=== PATIENT | female | born 1985 | race Caucasian/White ===

== ENCOUNTER 2019-05-20 11:39 | Outpatient (CLI) | payer SELFPAY ==
[2019-05-20 12:58] VITALS: BP 110/63
[2019-05-20] MEDS ORDERED: LACTATED RINGERS 1,000 ML IV SCH (13:00)
== END 2019-05-20 13:02 | disposition home or self-care (01) ==
LOC: TRG 11:39
PROVIDERS: ATTEND Obstetrics & Gynecology
DX: O47.1 False labor at or after 37 completed weeks of gestation (principal); Z3A.39 39 weeks gestation of pregnancy
CPT/HCPCS: 59025

== ENCOUNTER 2019-05-24 09:47 | Inpatient (IN) | payer SELFPAY ==
[2019-05-24] MEDS ORDERED: BICITRA PO SCH (10:24)
[2019-05-24] MEDS ORDERED: REGLAN IV SCH (10:24)
[2019-05-24] MEDS: LACTATED RINGERS 1,000 ML IV SCH ×2 (10:42→11:17)
[2019-05-24 10:50] LABS: Basophils % (Auto) 0.6 % (0.0-1.8); Eosinophils # (Auto) 0.1 K/mm3 (0.0-0.4); Eosinophils % (Auto) 1.4 % (0.0-4.3); Hematocrit 38.4 % (30.3-42.9); Hemoglobin 12.9 gm/dl (10.1-14.3); Lymphocytes # (Auto) 1.6 K/mm3 (1.2-5.4); Lymphocytes % (Auto) 24.4 % (13.4-35.0); Mean Corpuscular HGB Conc 34 % (30-34); Mean Corpuscular Volume 82 fl (79-97); Monocytes # (Auto) 0.4 K/mm3 (0.0-0.8); Monocytes % (Auto) 6.1 % (0.0-7.3); Platelet Count 198 K/mm3 (140-440); Red Blood Count 4.71 M/mm3 (3.65-5.03); Red Cell Distribution Width 15.6 % (13.2-15.2)
[2019-05-24] MEDS ORDERED: ANCEF/STERILE WATER 2 GM/20 ML 2 GM/20 ML SYRINGE IV NR (11:00)
[2019-05-24] MEDS ORDERED: PITOCin/NS 20 UNIT/1000ML DRIP 20 UNITS/1,000 ML BAG IV SCH ×2 (11:00→14:00)
[2019-05-24] MEDS ORDERED: DEXMEDETOMIDINE IV ONE (11:00)
[2019-05-24] MEDS ORDERED: PEPCID IV ONE (11:24)
--- NOTE | 2019-05-24 11:57 | History and Physical Report ---
History of Present Illness Date of examination: 05/24/19 Date of admission: 05/24/19 09:47 Chief complaint: Here for a repeat section. History of present illness: Term . Previous . MARIN 05/31/2019. Past History Past Medical History: no pertinent history Past Surgical History: section - Obstetrical History Expected Date of Delivery: 05/31/19 Actual Gestation: 39 Week(s) 0 Day(s) : 5 Medications and Allergies Allergies Allergy/AdvReac Type Severity Reaction Status Date / Time No Known Allergies Allergy Verified 12/20/14 17:12 Home Medications Medication Instructions Recorded Confirmed Last Taken Type HYDROcodone/APAP 5-325 [[place] 1 tab PO Q6HR PRN 07/25/16 07/25/16 Unknown Hi story 5/325] Ibuprofen [Motrin 200 MG tab] 1 tab PO Q6H PRN 07/25/16 07/25/16 Unknown History Docusate Sodium [Colace] 100 mg PO BID PRN #60 capsule 07/26/16 Unknown Rx Ferrous Sulfate [Feosol 325 MG tab] 325 mg PO BID #60 tablet 07/26/16 Unknown Rx Ibuprofen [Motrin] 800 mg PO Q8HR PRN #30 tablet 07/26/16 Unknown Rx oxyCODONE /ACETAMINOPHEN [Percocet 1 tab PO Q6HR PRN #40 tablet 07/26/16 Unknown Rx 5/325] Plus Tablet 1 tab PO DAILY 05/24/19 05/24/19 05/23/19 15:00 History Active Meds: Active Medications Citric Acid/Sodium Citrate (Bicitra) 30 ml PO ONCE JERAD Stop: 05/24/19 23:00 Last Admin: 05/24/19 11:34 Dose: 30 ml Documented by: Cefazolin Sodium (Ancef/Sterile Water 2 Gm/20 Ml) 2 gm in 20 mls @ 80 mls/hr IV PREOP NR; Protocol Stop: 05/24/19 23:00 Oxytocin/Sodium Chloride (Pitocin/Ns 20 Unit/1000ml Drip) 20 units in 1,000 mls @ 0 mls/hr IV TITR JERAD Lactated Ringer's (Lactated Ringers) 1,000 mls @ 2,250 mls/hr IV PREOP JERAD Stop: 05/25/19 11:27 Last Admin: 05/24/19 11:17 Dose: 2,250 mls/hr Documented by: Metoclopramide HCl (Reglan) 10 mg IV ONCE JERAD Stop: 05/24/19 23:00 Last Admin: 05/24/19 11:29 Dose: 10 mg Documented by: Review of Systems All systems: negative - Vital Signs Vital signs: Vital Signs Temp Resp 98.2 F 16 05/24/19 11:26 05/24/19 11:26 Temp Pulse Resp BP Pulse Ox 98.2 F 16 05/24/19 11:26 05/24/19 11:26 - Physical Exam Breasts: Positive: deferred Lungs: Positive: Clear to auscultation Abdomen: Positive: normal appearance. Negative: tenderness - Obstetrical FHR: auscultation normal, category 1 Results Result Diagrams: 05/24/19 Unknown Abnormal lab results 05/24/19 Range/Units Unknown RDW 15.6 H (13.2-15.2) % All other labs normal. Assessment and Plan - Patient Problems (1) Term Current Visit: Yes Status: Acute (2) Previous delivery, antepartum Current Visit: Yes Status: Acute Plan to address problem: for elective repeat delivery.
[2019-05-24] MEDS ORDERED: TORADOL ONE (11:58)
[2019-05-24] MEDS ORDERED: ZOFRAN ONE (11:58)
--- NOTE | 2019-05-24 12:01 | Anesthesia Consultation ---
Anesthesia Consult and Med Hx Date of service: 05/24/19 - Airway Anesthetic Teeth Evaluation: Chipped ROM Head & Neck: Adequate Mental/Hyoid Distance: Adequate Mallampati Class: Class II Intubation Access Assessment: Probably Good - Pulmonary Exam CTA: Yes - Cardiac Exam Cardiac Exam: RRR - Pre-Operative Health Status ASA Pre-Surgery Classification: ASA2 Proposed Anesthetic Plan: Spinal - Pulmonary Hx Smoking: No Hx Asthma: No Hx Respiratory Symptoms: No SOB: No COPD: No Home Oxygen Therapy: No Hx Pneumonia: No Hx Sleep Apnea: No - Cardiovascular System Hx Hypertension: No Hx Coronary Artery Disease: No Hx Heart Attack/AMI: No Hx Angina: No Hx Percutaneous Transluminal Coronary Angioplasty (PTCA): No Hx Cardia Arrhythmia: No Hx Pacemaker: No Hx Internal Defibrillator: No Hx Valvular Heart Disease: No Hx Heart Murmur: No Hx Peripheral Vascular Disease: No - Central Nervous System Hx Neuromuscular Disorder: No Hx Seizures: No CVA: No Hx Back Pain: No Hx Psychiatric Problems: No - Gastrointestinal Hx Ulcer: No Hx Gastroesophageal Reflux Disease: Yes - Endocrine Hx Renal Disease: No Hx End Stage Renal Disease: No Hx Cirrhosis: No Hx Liver Disease: No Hx Insulin Dependent Diabetes: No Hx Non-Insulin Dependent Diabetes: No Hx Thyroid Disease: No Hx Hypothyroidism: No Hx Hyperthyroidism: No - Hematic Hx Anemia: No Hx Sickle Cell Disease: No - Other Systems Hx Alcohol Use: No Hx Substance Use: No Hx Cancer: No Hx Obesity: Yes (bmi 38.1)
[2019-05-24] MEDS ORDERED: DILAUDID IV PRN ×2 (12:02)
[2019-05-24] MEDS ORDERED: ZOFRAN IV PRN ×2 (12:02→13:57)
[2019-05-24] MEDS ORDERED: BENADRYL IV PRN (12:02)
--- NOTE | 2019-05-24 12:02 | Anesthesia Day of Surgery ---
Anesthesia Day of Surgery - Day of Surgery Patient Examined: Yes Patient H&P Reviewed: Yes Patient is NPO: Yes Beta Blockers: No Cardiac Clearance: No Pulmonary Clearance: No Fede's Test: N/A
[2019-05-24] MEDS ORDERED: WATER FOR IRRIG STERILE IR ONE (12:14)
[2019-05-24] MEDS ORDERED: NACL 0.9% IR ONE (12:14)
[2019-05-24] MEDS ORDERED: PHENYLEPHRINE/NS Syringe 1,000 MCG/10 ML IV ONE (12:39)
[2019-05-24] MEDS ORDERED: SODIUM CHLORIDE FLUSH SYRINGE 10 ML IV SCH (13:00)
[2019-05-24] MEDS ORDERED: LANSINOH TP PRN (13:57)
[2019-05-24] MEDS ORDERED: NARCAN 0.4 MG/1 ML IV PRN (13:57)
[2019-05-24] MEDS ORDERED: TUCKS PAD TP PRN (13:57)
[2019-05-24] MEDS ORDERED: TYLENOL PO PRN (13:57)
[2019-05-24] MEDS ORDERED: NORCO 5/325 PO PRN (13:57)
[2019-05-24] MEDS ORDERED: SODIUM CHLORIDE FLUSH SYRINGE 10 ML IV NR (14:00)
--- NOTE | 2019-05-24 14:11 | Operative Report ---
Operative Report Operative Report: Date of surgery: 05/24/2019 Preoperative diagnoses: Term , previous section. Postoperative diagnoses: The same. Plus peritoneal adhesions Operation: delivery Surgeon:Silvestre Rosario MD Escalation Engineer: Pako Merino CRNA Anesthesia: Epidural block Estimated blood loss: 800 mL Complications: None Findings: There was a live baby girl 7 lbs. 15 oz., Apgars 9/9 in vertex presentation both ovaries and fallopian tubes were grossly normal. The uterus had multiple subserosal peanuts sized fibroids. The greater omentum was adherent to the posterior surface of the anterior parietoperitoneum in 2 locations: 1 directly identified and able on the second adherence was more distal and in the midline. Procedure in detail: The patient was taken to the operating room and given a spinal block. Patient was placed in the straight supine position and a Van catheter was inserted. The patient was prepped in the abdomen. The drapes were placed. A timeout was done. With the go ahead from the cadastral engineer, a Pfannenstiel incision was made to enclose a previous scar with keloid formation and it. The small strip of scar skin was excised. This incision was then carried across the subcutaneous layer to the fascia which was also divided transversely. The recti abdominis muscle flaps were stripped from the fascia using a combination of blunt and sharp dissections. The muscles were in the midline to gain access to the anterior parietal peritoneum which was divided after excluding any underlying viscera. The omental adhesions to the anterior parietal peritoneum had to be dealt with before the surgery can continue. These bands of adhesions were divided in between 2 Maggie's forceps, divided and then suture ligated. The access to the peritoneal cavity was then widened by manual stretching. The bladder blade was applied. The utero vesical peritoneal flap was divided transversely allowing the bladder to be displaced caudally. The uterine incision was placed in the lower segment transversely. The uterine incision was carried to the decidual layer. The uterine incision was extended on both sides using the bandage scissors. The amniotic sac was ruptured with clear fluid. The head was lifted out of the falls maternal pelvis and delivered through the incision using fundal pressure. The airways were bulb suctioned beginning with the mouth. Continuing fundal pressure combined with traction on the mandibular processes of the jaw delivered the rest of the baby. The umbilical cord was double clamped and divided. The baby was carefully transferred to the pediatric team. The placenta was manually removed from the uterine cavity. The uterine cavity was explored and was empty of any placental remnants. The uterine incision was repaired in 1 layers with #1 Vicryl. The surgical line on the uterus was hemostatic. Blood and clots were cleared from the peritoneal cavity. The anterior parietal peritoneum was repaired with #1 Vicryl. The fascia was repaired with #1 Vicryl. The subcutaneous layer was made hemostatic using the Bovie before the skin was closed subcuticularly with 4-0 Vicryl. There were no complications. The estimated blood loss was 800 mL. All sponges and instrument counts were correct. Patient was safely transferred to the recovery room.
--- NOTE | 2019-05-24 14:13 | Post Anesthesia Evaluation ---
- Post Anesthesia Evaluation Patient Participated: Yes Airway Patent: Yes Stable Respiratory Function: Yes Nausea/Vomiting: No Temp > 96.8F: Yes Pain Manageable: Yes Adequeate Hydration: Yes Anesthesia Complications: No Block Receding Appropriately: Yes Patient on Ventilator: No
[2019-05-24] MEDS: ANCEF/NS 1 GM/50 ML 1 GM/50 ML BAG IV SCH (17:37)
[2019-05-24] MEDS: TORADOL IV PRN (21:16)
[2019-05-25] MEDS: ANCEF/NS 1 GM/50 ML 1 GM/50 ML BAG IV SCH (00:36)
[2019-05-25] MEDS: MORPHINE IV PRN ×2 (00:37→18:01)
[2019-05-25] MEDS ORDERED: D5LR 1,000 ML IV SCH (01:00)
[2019-05-25 03:44] LABS: Hematocrit 31.6 % (30.3-42.9); Hemoglobin 10.6 gm/dl (10.1-14.3)
[2019-05-25] MEDS: TORADOL IV PRN ×2 (06:52→17:57)
[2019-05-25] MEDS: PRENATAL VITAMIN PO SCH (10:40)
--- NOTE | 2019-05-25 12:07 | Progress Note ---
Assessment and Plan A: POD #1 Stable P: Follow Routine PostOp orders Encourage increased ambulation Subjective - Subjective Date of service: 05/25/19 Patient reports: appetite normal, voiding normally, pain well controlled, flatus, ambulating normally [place]: doing well, bottle feeding (and ) Objective - Vital Signs Latest vital signs: Vital Signs Temp Pulse Resp BP BP Pulse Ox 05/25/19 08:35 97.9 F 63 20 117/68 99 05/25/19 03:40 97.8 F 61 18 122/71 99 05/25/19 00:23 98.2 F 64 18 106/67 96 05/24/19 21:00 98.3 F 76 18 109/59 98 05/24/19 16:05 97.4 F L 54 L 18 91/54 05/24/19 15:06 97.9 F 54 L 14 102/60 99 05/24/19 14:51 54 L 13 97/52 05/24/19 14:36 53 L 14 93/55 98 05/24/19 14:21 50 L 14 97/47 97 05/24/19 14:16 53 L 15 97/58 98 05/24/19 14:11 97.8 F 51 L 12 97/56 97 05/24/19 14:06 97.8 F 50 L 12 106/43 98 Intake and Output 05/24/19 05/25/19 05/25/19 22:59 06:59 14:59 Intake Total 690 480 480 Output Total 100 1400 525 Balance 590 -920 -45 Intake: IV 350 ANCEF/NS 1 GM/50 ML 1 gm 50 In 50 ml @ 100 mls/hr IV Q8H [facility] Rx#:[id number] Oral 240 480 240 Intake, Free Water 100 240 Output: Urine 100 1400 525 Indwelling Catheter 50 900 Void 500 525 Other: Total, Intake Amount 240 240 240 Total, Output Amount 50 500 525 # Voids Indwelling Catheter 1 Void 2 - Exam Breasts: Present: normal Cardiovascular: Present: Regular rate Lungs: Present: Clear to auscultation, Normal air movement Abdomen: Present: normal appearance, soft, normal bowel sounds Uterus: Present: normal, firm, fundal height below umbilicus Extremities: Present: normal Incision: Present: normal, dry, dressed - Labs Labs: Abnormal lab results 05/24/19 Range/Units 10:30 Crossmatch See Detail
[2019-05-25] MEDS: FEOSOL PO SCH (12:50)
[2019-05-25] MEDS: IBUPROFEN PO PRN ×2 (12:53→21:18)
[2019-05-26] MEDS: IBUPROFEN PO PRN ×2 (03:10→11:10)
[2019-05-26] MEDS ORDERED: BOOSTRIX IM ONE (06:00)
[2019-05-26 10:04] VITALS: BP 121/70
[2019-05-26] MEDS: PRENATAL VITAMIN PO SCH (11:10)
[2019-05-26] MEDS: FEOSOL PO SCH (11:10)
--- NOTE | 2019-05-26 11:21 | Progress Note ---
Assessment and Plan A: POD#2 s/p Repeat c/s Pain well controlled Asymptomatic Anemia VSS Stable P: Routine PP/PO orders Continue Ferrous sulfate 325mg PO BID Encouraged ambulation in room Abdominal Binder Anticipate discharge this pm Subjective - Subjective Date of service: 05/26/19 Principal diagnosis: POD#2 s/p Repeat C/S Patient reports: appetite normal, voiding normally, pain well controlled, flatus, ambulating normally, no bowel movement : doing well, other (Breast/Bottle) Objective - Vital Signs Latest vital signs: Vital Signs Temp Pulse Resp BP BP Pulse Ox 05/26/19 08:43 98.0 F 76 16 121/70 97 05/26/19 03:10 18 05/26/19 00:00 98.4 F 67 18 99/78 05/25/19 21:18 18 Intake and Output 05/25/19 05/26/19 05/26/19 23:59 07:59 15:59 Intake Total 1560 300 Output Total 500 Balance 1060 300 Intake: Oral 840 Intake, Free Water 720 300 Output: Urine 500 Void 500 Other: Total, Intake Amount 480 Total, Output Amount 500 # Voids Void 3 - Exam Breasts: Present: normal, Cardiovascular: Present: Regular rate, Normal S1, Normal S2, No murmurs Lungs: Present: Clear to auscultation, Normal air movement Abdomen: Present: normal appearance, soft, tenderness (as expected post-op), normal bowel sounds. Absent: distention Vulva: both: normal Uterus: Present: firm, fundal height at umbilicus Extremities: Present: normal Deep Tendon Reflex Grade: Normal +2 Incision: Present: normal, dry, intact
--- NOTE | 2019-05-26 11:24 | Discharge Summary ---
Providers - Providers Date of Admission: 05/24/19 09:47 Date of discharge: 05/26/19 Attending physician: JOLYNN TURNER MD Primary care physician: JOLYNN TURNER MD Hospitalization Reason for admission: IUP at term Delivery: Procedure: repeat low transverse Procedure details: See Operative note Episiotomy: none Incision: normal, dry, intact Other procedures: none complications: none Discharge diagnosis: IUP at term delivered baby: female Condition at discharge: Good Disposition: DC-01 TO HOME OR SELFCARE Plan - Discharge Medications Prescriptions: HYDROcodone/APAP 5-325 [[place] 5/325] 1 - 2 each PO Q4HR PRN 7 Days #30 tablet PRN Reason: Pain - Provider Discharge Summary Activity: routine, no sex for 6 weeks, no heavy lifting 4 weeks, no strenuous exercise Diet: routine Instructions: routine Additional instructions: [] Smoking cessation referral if applicable(refer to patient education folder for contact #) [] Refer to [facility] Booklet Call your doctor immediately for: * Fever > 100.5 * Heavy vaginal bleeding ( >1 pad per hour) * Severe persistent headache * Shortness of breath * Reddened, hot, painful area to leg or breast * Drainage or odor from incision. * Keep incision clean and dry at all times and follow doctor's instructions regarding bathing/showering - Follow up plan Follow up: JOLYNN TURNER MD [Primary Care Provider] - 7 Days
== END 2019-05-26 14:42 | disposition home or self-care (01) | DRG 788 ==
LOC: APU 09:47 → OB 16:04
PROVIDERS: ADMIT Obstetrics & Gynecology; ATTEND Obstetrics & Gynecology
PROC: 10D00Z1 Extraction of Products of Conception, Low, Open Approach (ICD-10-PCS; principal; 2019-05-24)
PROC: 3E0234Z Introduction of Serum, Toxoid and Vaccine into Muscle, Percutaneous Approach (ICD-10-PCS; 2019-05-26)
DX: O34.211 Maternal care for low transverse scar from previous cesarean delivery (principal); O99.02 Anemia complicating childbirth; D64.9 Anemia, unspecified; O99.62 Diseases of the digestive system complicating childbirth; K21.9 Gastro-esophageal reflux disease without esophagitis; O99.214 Obesity complicating childbirth; E66.9 Obesity, unspecified; Z3A.39 39 weeks gestation of pregnancy; Z37.0 Single live birth; Z23 Encounter for immunization; Z79.899 Other long term (current) drug therapy
CPT/HCPCS: 36415; 85014; 85018; 85025; 86850; 86870; 86900; 86901; 86922; 90471; 90715; G0378; J0690; J1885; J2270; J2370; J2405; J2590; J2765; J3490; J7120; J7121